=== PATIENT | female | born 1995 | race Caucasian/White ===

== ENCOUNTER 2018-01-05 22:12 | Emergency (ER) | payer OTHER ==
[~2018-01-05] VITALS: Ht 157.5 cm; Wt 54.4 kg
[2018-01-05 22:24] VITALS: BP 112/72
== END 2018-01-05 23:01 | disposition admitted as inpatient to this hospital (09) ==
LOC: ERH 22:12
DX: R53.1 Weakness (principal); R51 Headache
CPT/HCPCS: 81025